=== PATIENT | female | born 1950 ===

== ENCOUNTER 2018-04-14 07:55 | Outpatient (CLI) | payer MEDICARE | END 2018-04-14 07:56 | disposition home or self-care (01) | LOC: C.MAMMO 07:56 | DX: Z12.31 Encounter for screening mammogram for malignant neoplasm of breast (principal) ==

== ENCOUNTER 2018-06-26 09:40 | Outpatient (CLI) | payer MEDICARE | END 2018-06-26 09:41 | disposition home or self-care (01) | LOC: C.USIC 09:40 ==